=== PATIENT | male | born 1990 | race Caucasian/White ===

== ENCOUNTER 2016-07-18 12:48 | Emergency (ER) | payer OTHER ==
[~2016-07-18] VITALS: Ht 162.6 cm; Wt 68.0 kg
[2016-07-18 13:04] VITALS: BP 111/69
--- NOTE | 2016-07-18 14:22 | RADIOLOGY REPORT ---
EXAMINATION: XR SHOULDER, LEFT CLINICAL INFORMATION: Pain. COMPARISON: None TECHNIQUE: AP external rotation, Grashey, scapular Y, and axillary views of the left shoulder. FINDINGS: There is a comminuted fracture of the midclavicular shaft with overriding of the fracture fragments by approximately 2 cm. The distal clavicular fragment is displaced inferiorly by one shaft width. Acromioclavicular and glenohumeral joints are normal. No additional fractures. Soft tissues are swollen around the clavicle. IMPRESSION: 1. Comminuted mid clavicular shaft fracture with displacement and overriding of the fracture fragments. 2. Normal glenohumeral and acromioclavicular joints.
[2016-07-18] MEDS ORDERED: HYDROCODON-ACE1 EAC2 PO (14:37)
--- NOTE | 2016-07-18 14:37 | ED UPPER/LOWER EXTREMITY COMPL ---
History of Present Illness General Chief Complaint: General Adult Stated Complaint: "I NEED AN XRAY OF MY L SHOULDER" Source: patient Exam Limitations: no limitations Vital Signs & Intake/Output Vital Signs & Intake/Output Vital Signs Date Time Temp Pulse Resp B/P Pulse O2 O2 Flow FiO2 Ox Delivery Rate 07/18 1304 96.7 65 14 111/69 100 Room Air ED Intake and Output 07/19 0000 07/18 1200 Intake Total Output Total Balance Patient 150 lb Weight Allergies Coded Allergies: NO KNOWN ALLERGIES (01/02/11) Reconcile Medications Hydrocodone/Acetaminophen (Hydrocodon-Acetaminophen 5-325) 5 MG-325 MG TABLET 1-2 TAB PO Q4-6 PRN PRN pain Triage Note: PT TO ED FOR "PRE-OP XRAY OF MY SHOULDER I DONT REMEMBER HIS NAME THOUGH". Triage Nurses Notes Reviewed? yes Onset: Abrupt Duration: week(s):, constant, continues in ED Timing: recent history Severity: moderate, severe Pain/Injury Location: Left: Shoulder. No Modifying Factors: none HPI: 25-year-old male comes into emergency room for further evaluation of left shoulder pain. Patient had fallen back in early May and broke his left clavicle. Patient followed up with orthopedic doctor. Patient was told that he was knocked in the require surgery. Patient reports that he started to do better but now has been experiencing pain in the posterior aspect of his left shoulder. Patient has good range of motion and has currently been going to physical therapy. He reports that he is now seeing a second orthopedic doctor for a second opinion. First orthopedic doctor mentioned that he may end up needing surgery at this point because it is not healing appropriately. Patient reports that the new orthopedic doctor wanted him to come in the hospital to get a new x-ray done to bring to the office with him on Wednesday when he evaluates him. Patient denies any changes in his symptoms. Patient is only here due to the fact that the orthopedic doctor told him to come in for an x-ray. Patient requesting something for pain to go home with for nighttime. (DEEPALI GANDHI) Past History Travel History Traveled to [place] past 21 day No Medical History Any Pertinent Medical History? see below for history Neurological: NONE EENT: NONE Cardiovascular: NONE Respiratory: NONE Gastrointestinal: NONE Hepatic: NONE Renal: NONE Musculoskeletal: NONE Psychiatric: NONE Endocrine: NONE Blood Disorders: NONE Cancer(s): NONE Surgical History Surgical History: non-contributory Psychosocial History What is your primary language Albanian Tobacco Use: Current Daily Use Daily Tobacco Use Amount/Type: => 5 Cigarettes daily ETOH Use: denies use Illicit Drug Use: marijuana Family History Hx Contributory? No (DEEPALI GANDHI) Review of Systems Review of Systems Constitutional: Reports: no symptoms. EENTM: Reports: no symptoms. Respiratory: Reports: no symptoms. Cardiovascular: Reports: no symptoms. Gastrointestinal/Abdominal: Reports: no symptoms. Genitourinary: Reports: no symptoms. Musculoskeletal: Reports: see HPI. Skin: Reports: no symptoms. Neurological/Psychological: Reports: no symptoms. Hematologic/Endocrine: Reports: no symptoms. Immunological: Reports: no symptoms. All Other Systems: Reviewed and Negative (DEEPALI GANDHI) Physical Exam Physical Exam General Appearance: well developed/nourished, mild distress Head: atraumatic Eyes: Bilateral: normal appearance. Ears, Nose, Throat: normal ENT inspection, hearing grossly normal Neck: normal inspection Cardiovascular/Respiratory: no respiratory distress Back: normal inspection Shoulder Left: Positive deformity left clavicle, full range of motion, radial pulse intact, tenderness overtrapezius muscle post anteriorly, negative empty can test, Neurologic/Tendon: normal sensation, normal motor functions, normal tendon functions, responds to pain, no evidence tendon injury, no pulse deficit Skin: intact, normal color, warm/dry Lymphatic: no anterior cervical franco (DEEPALI GANDHI) Progress Differential Diagnosis: contusion, dislocation, fracture, septic arthritis, sprain, tendon injury, muscle strain Plan of Care: 07/18/2016 3:57:16 PM Patient is nontoxic-appearing. Patient is in no apparent distress. Patient resting comfortably in room. Patient will follow up with orthopedic doctor. Return if any other concerns. Diagnostic Imaging: Viewed by Me: Radiology Read. Discussed w/RAD: Radiology Read. Radiology Impression: SERVICE DATE: 07/18/16 EXAM TYPE: RAD - XRY- SHOULDER COMPLETE-LEFT EXAMINATION: XR SHOULDER, LEFT CLINICAL INFORMATION: Pain. COMPARISON: None TECHNIQUE: AP external rotation, Grashey, scapular Y, and axillary views of the left shoulder. FINDINGS: There is a comminuted fracture of the midclavicular shaft with overriding of the fracture fragments by approximately 2 cm. The distal clavicular fragment is displaced inferiorly by one shaft width. Acromioclavicular and glenohumeral joints are normal. No additional fractures. Soft tissues are swollen around the clavicle. IMPRESSION: 1. Comminuted mid clavicular shaft fracture with displacement and overriding of the fracture fragments. 2. Normal glenohumeral and acromioclavicular joints. DICTATED BY: PRESTON PATEL MD DATE/TIME DICTATED:07/18/161416 FLAME HARDENING MACHINE OPERATOR:MAIKEL DATE/TIME TRANSCRIBED:07/18/161416 (DEEPALI GANDHI) Departure Departure Disposition: HOME OR SELF CARE Condition: Stable Clinical Impression Primary Impression: Clavicle fracture Referrals: BARRIE SYED,CATERINA Garvey (PCP/Family) Additional Instructions: Take Vicodin for pain. Follow-up with orthopedic doctor as ready scheduled. Return to the emergency room immediately if any other concerns worsening symptoms. Please go over all results of today's visit with your primary care doctor. Contact your primary care doctor to let them know you were here in the emergency room. There may be nonspecific findings which may not be related to your visit today here in the emergency room but may require further evaluation and chronic monitoring by your primary care doctor. If you had a laceration today the chance of foreign body always remains. You should follow-up with your primary care doctor for recheck in 3-5 days for a wound check. If you had an x-ray done there is a chance that a fracture could have been missed on initial read and you should follow-up with your primary care doctor for repeat x-rays if symptoms persist. If your blood pressure was elevated here in the emergency room please have rechecked by her primary care doctor within the next 48 hours by your primary care doctor. If you were prescribed a narcotic here in the emergency room or any type of controlled substances you're not allowed to drive while taking this medication or operate any type of heavy machinery. Narcotics can make you feel lightheaded dizziness nausea and can cause constipation. You may need to picker/puller a stool softener. Thank you for choosing [facility] emergency room. Please return to the emergency room immediately if you have any other concerns worsening of symptoms. Departure Forms: Customer Survey General Discharge Information Prescriptions: Current Visit Scripts Hydrocodone/Acetaminophen (Hydrocodon-Acetaminophen 5-325) 1-2 TAB PO Q4-6 PRN PRN pain #15 TAB (DEEPALI GANDHI) PA/SUPERINTENDENT NONSELLING Co-Sign Statement Statement: ED Attending supervision documentation- [] I saw and evaluated the patient. I have also reviewed all the pertinent lab results and diagnostic results. I agree with the findings and the plan of care as documented in the PA's/SUPERINTENDENT NONSELLING's documentation. [X] I have reviewed the ED Record and agree with the PA's/SUPERINTENDENT NONSELLING's documentation. [] Additions or exceptions (if any) to the PAs/SUPERINTENDENT NONSELLING's note and plan are summarized below: [] (CHIQUITA SYED,GENO)
== END 2016-07-18 14:45 ==
LOC: ERH 12:48
DX: S42.022A Displaced fracture of shaft of left clavicle, initial encounter for closed fracture (principal); W19.XXXA Unspecified fall, initial encounter; Y93.9 Activity, unspecified; Y92.9 Unspecified place or not applicable
CPT/HCPCS: 73030-LT